=== PATIENT | male | born 1995 | race Caucasian/White ===

== ENCOUNTER 2018-12-28 07:11 | Outpatient (CLI) | payer BC, SELFPAY ==
--- NOTE | 2018-12-28 11:00 | DI.RAD_ITS ---
EXAM: XR TIB/FIB LT INDICATION: f/u. COMPARISON: No exams were available for comparison TECHNIQUE: 2D digital imaging was performed. FINDINGS: Two views were obtained. No prior films. There is an intramedullary chidi transfixing a mid tibial fr acture. Mid fibular fracture noted as well. Two transverse screws through the intramedullary chidi pr oximally and one screw noted distally. A screw hole is also noted distally. This presumably represe nts a removed screw.
== END 2018-12-28 07:31 ==
PROVIDERS: Visit Provider Orthopaedic Surgery
DX: S82.402A Unspecified fracture of shaft of left fibula, initial encounter for closed fracture (principal); S82.202A Unspecified fracture of shaft of left tibia, initial encounter for closed fracture
CPT/HCPCS: 73590

== ENCOUNTER 2019-02-08 09:53 | Outpatient (CLI) | payer BC, SELFPAY ==
--- NOTE | 2019-02-08 09:39 | DI.RAD_ITS ---
EXAM: XR TIB/FIB LT INDICATION: f/u. COMPARISON: No exams were available for comparison TECHNIQUE: 2D digital imaging was performed. FINDINGS: An intramedullary chidi is again noted through the tibia. There is no change in hardware or fracture a lignment. No new abnormalities are seen. There has been some interval increase in callous formation around the fracture since the previous exam.
== END 2019-02-08 10:13 ==
PROVIDERS: Visit Provider Orthopaedic Surgery
DX: S82.202D Unspecified fracture of shaft of left tibia, subsequent encounter for closed fracture with routine healing (principal); S82.402D Unspecified fracture of shaft of left fibula, subsequent encounter for closed fracture with routine healing
CPT/HCPCS: 73590

== ENCOUNTER 2019-03-22 10:09 | Outpatient (CLI) | payer BC, SELFPAY ==
--- NOTE | 2019-03-22 10:27 | DI.RAD_ITS ---
EXAM: XR TIB/FIB LT INDICATION: f/u fracture. COMPARISON: No exams were available for comparison TECHNIQUE: 2D digital imaging was performed. FINDINGS: An intramedullary chidi is again noted through the tibia. There has been continued healing of the frac tures of the distal 3rd of the tibia and fibula. No new abnormalities are seen.
== END 2019-03-22 10:29 ==
PROVIDERS: Visit Provider Orthopaedic Surgery
DX: S82.202D Unspecified fracture of shaft of left tibia, subsequent encounter for closed fracture with routine healing (principal); S82.402D Unspecified fracture of shaft of left fibula, subsequent encounter for closed fracture with routine healing
CPT/HCPCS: 73590

== ENCOUNTER 2020-11-12 12:18 | Outpatient (REF) | payer BC, SELFPAY ==
[2020-11-12 20:45] LABS: HCT 47.2 % (40.0-50.0); HGB 15.4 g/dL (13.5-17.5); MCH 29.9 pg (27.0-33.0); MCHC 32.6 % (32.0-36.0); MCV 91.7 fL (80-95); MPV 11.6 fL (8.0-11.0); Platelet Count 209 10^3/uL (130-400); RBC 5.15 10^6/uL (4.36-5.78); RDW 13.2 % (11.8-14.1); RDW-SD 45.3 fL; WBC 7.52 10^3/uL (4.4-10.8)
[2020-11-12 20:59] LABS: ALT 34 U/L (16-63); AST 19 U/L (15-37); Alkaline Phosphatase 73 U/L (46-116); Anion Gap 8.6 mmol/L (3-11); BUN 19 mg/dL (7-18); Bilirubin, Total 0.5 mg/dL (0.2-1.0); CO2 29.4 mmol/L (21.0-32.0); CREATININE 1.2 mg/dL (0.70-1.30); Calculated LDL 100 mg/dL (<100); Chloride 107 mmol/L (98-107); Cholesterol 154 mg/dL (<200); Glucose 70 mg/dL (74-106); HDL Cholesterol 34 mg/dL (40-60); Potassium 4.2 mmol/L (3.5-5.1); Sodium 145 mmol/L (136-145); TSH (W/Ref FT4) 0.56 uIU/mL (0.36-3.74); Total Protein 6.9 g/dL (6.4-8.2); Triglyceride 103 mg/dL (<150)
== END 2020-11-12 12:19 | disposition home or self-care (01) ==
LOC: NCHCN 12:18
PROVIDERS: Visit Provider Nurse Practitioner Family
DX: Z78.9 Other specified health status (principal)
CPT/HCPCS: 80053; 80061; 85027; 84443